=== PATIENT | female | born 1960 | race Caucasian/White ===

== ENCOUNTER 2022-03-12 16:24 | Outpatient (CLI) | payer MEDICARE, SELFPAY | END 2022-03-12 16:25 | disposition home or self-care (01) | LOC: AMB 03-13 04:19 | PROVIDERS: Visit Provider Family Medicine | DX: R53.1 Weakness (principal) | CPT/HCPCS: A0998 ==

== ENCOUNTER 2022-10-25 13:09 | Outpatient (CLI) | payer MEDICARE, SELFPAY | END 2022-10-25 13:10 | disposition home or self-care (01) | PROVIDERS: PCP Internal Medicine; Visit Provider Internal Medicine | DX: Z00.00 Encounter for general adult medical examination without abnormal findings (principal); E78.5 Hyperlipidemia, unspecified; I10 Essential (primary) hypertension; E66.01 Morbid (severe) obesity due to excess calories; G62.9 Polyneuropathy, unspecified | CPT/HCPCS: 80048; 80061; 82306 ==

== ENCOUNTER 2023-02-27 18:16 | Outpatient (CLI) | payer MEDICARE, SELFPAY | END 2023-02-27 18:17 | disposition home or self-care (01) | LOC: AMB 03-05 08:13 | PROVIDERS: PCP Internal Medicine; Visit Provider Emergency Medicine | DX: R53.1 Weakness (principal) | CPT/HCPCS: A0998 ==

== ENCOUNTER 2023-03-07 12:00 | Outpatient (CLI) | payer MEDICARE, SELFPAY | END 2023-03-07 12:01 | disposition home or self-care (01) | LOC: AMB 03-10 15:57 | PROVIDERS: PCP Internal Medicine; Visit Provider Emergency Medicine | DX: R53.1 Weakness (principal) | CPT/HCPCS: A0998 ==

== ENCOUNTER 2023-04-10 08:08 | Outpatient (CLI) | payer MEDICARE, SELFPAY | END 2023-04-10 08:09 | disposition home or self-care (01) | LOC: AMB 04-11 18:36 | PROVIDERS: PCP Internal Medicine; Visit Provider Family Medicine | DX: R53.1 Weakness (principal) | CPT/HCPCS: A0998 ==

== ENCOUNTER 2024-01-08 13:43 | Outpatient (CLI) | payer OTHER, SELFPAY | END 2024-01-08 13:44 | disposition home or self-care (01) | PROVIDERS: PCP Internal Medicine; Visit Provider Internal Medicine | DX: E55.9 Vitamin D deficiency, unspecified (principal); E66.01 Morbid (severe) obesity due to excess calories; E78.5 Hyperlipidemia, unspecified; I10 Essential (primary) hypertension | CPT/HCPCS: 80048; 80061; 82306 ==

== ENCOUNTER 2024-02-16 02:19 | Outpatient (CLI) | payer OTHER, SELFPAY | END 2024-02-16 02:20 | disposition home or self-care (01) | LOC: AMB 02-17 00:19 | PROVIDERS: PCP Internal Medicine; Visit Provider Internal Medicine | DX: F41.9 Anxiety disorder, unspecified (principal) | CPT/HCPCS: A0998 ==

== ENCOUNTER 2024-02-20 10:15 | Outpatient (CLI) | payer OTHER, SELFPAY | END 2024-02-20 10:16 | disposition home or self-care (01) | LOC: AMB 02-22 02:35 | PROVIDERS: PCP Internal Medicine; Visit Provider Family Medicine | DX: M54.9 Dorsalgia, unspecified (principal) | CPT/HCPCS: A0425; A0427 ==

== ENCOUNTER 2024-02-20 10:43 | Emergency (ER) | payer OTHER, SELFPAY ==
[2024-02-20 10:54] VITALS: BP 126/97; PULSE 63; RESP 22; TEMP 36.2; O2SAT 95; BMI 48.4
[2024-02-20 11:03] VITALS: PULSE 66; O2SAT 95
[2024-02-20 11:15] VITALS: PULSE 60; O2SAT 88
--- NOTE | 2024-02-20 11:32 | ED.BACK ---
HPI - Back Pain/Injury General Chief Complaint: Back Injury/Pain Stated Complaint: Back pain Time Seen by Provider: 02/20/24 10:47 History of Present Illness HPI Narrative: This 63-year-old female comes in by ambulance because of chronic back pain. She does not describe any recent injury event or strenuous activity. She is morbidly obese and lives alone at home. She states that today she was afraid to get up because of her back pain. She reports that she does have Vicodin and a muscle relaxant at home but chose instead to use vodka over the past day. She states that none of these have really helped her. She does not report any pain radiating down either leg. Ambulance report that her living situation was on capped and apparently they are reporting a vulnerable adult. The patient tells me that she wants to be able to go home but came in today primarily because she felt she was at risk for getting up to ambulate. She states that her last drink of alcohol was about 24 hours ago. She does not appear to be intoxicated. Related Data Home Medications ?Medication ?Instructions ?Recorded ?Confirmed gabapentin 300 mg capsule 300 - 600 mg PO TID PRN 01/08/24 Previous Rx's ?Medication ?Instructions ?Recorded atorvastatin 20 mg tablet 20 mg PO DAILY #90 tabs 01/08/24 chlorthalidone 25 mg tablet 25 mg PO QDAY #90 tabs 01/08/24 clonidine HCl 0.1 mg tablet 0.1 mg PO BID #180 tabs 01/08/24 furosemide 20 mg tablet (Lasix) 20 mg PO QDAY PRN edema #90 tabs 01/08/24 metoprolol succinate 50 mg 50 mg PO DAILY #90 tabs 01/08/24 tablet,extended release 24 hr rivaroxaban 20 mg tablet (Xarelto) 20 mg PO DAILY #90 tabs 01/08/24 trazodone 50 mg tablet 50 - 100 mg (1 - 2 x 50 mg) PO 01/08/24 QDAY #135 tabs ergocalciferol (vitamin D2) 1,250 50,000 unit PO QWEEK #12 caps 01/09/24 mcg (50,000 unit) capsule (Vitamin D2) hydrocodone 5 mg-acetaminophen 325 1 tab PO Q6H PRN pain #90 tabs 01/29/24 mg tablet carisoprodol 350 mg tablet 350 mg PO TID PRN muscle pain #90 01/30/24 tabs Allergies Allergy/AdvReac Type Severity Reaction Status Date / Time aspirin Allergy Unknown Irritation Verified 10/25/22 13:25 to her psoriasis Lisinopril Allergy Unknown Angioedema Uncoded 10/25/22 13:25 Review of Systems Status of ROS: Reports: 10 or more systems reviewed and unremarkable except as noted in History and below Narrative: Constitutional: No fevers, no weight gain or loss. Eyes: No discharge. No vision changes. HENT: No congestion, no sore throat, no ear pain. Cardiovascular: No chest pain, no palpitations. Respiratory: No shortness of breath, no wheezes, no cough. Gastrointestinal: No abdominal pain, no vomiting, no diarrhea. Genitourinary: No dysuria, no hematuria. Musculoskeletal: Low back pain as described above. Skin: No rashes, no pruritis. Neurological: No dizziness, weakness, sensory change, speech change. Endo/Heme/Allergies: No bruising or bleeding. No polydipsia. Pysch: no suicidality, no anxiety, no insomnia. All other systems reviewed and are negative. [facility] Surgical History (Updated 10/25/22 @ 13:45 by Milana Lozano MD) History of total hip replacement ?Z96.649 - Presence of unspecified artificial hip joint (ICD-10) Social History (Updated 01/08/24 @ 16:01 by Gem Yee ~ [facility]) What is your current living situation?: I presently have a place to live Problems where you live: no known problems In the past 12 months, utilities in danger of being shut off: declined to answer In past 12 months, lack of transportation kept you from medical appts, meetings, work, or getting things needed for daily living: declined to answer In the past 12 mos, have been you worried that your food would run out before you had money to buy more?: sometimes true In the past 12 mos, the food you bought just didn't last and you didn't have money to buy more?: sometimes true Smoking Status: Current every day smoker How many standard drinks containing alcohol do you have on a typical day: 1 or 2 How often do you have six or more drinks on one occasion: Daily or almost daily AUDIT-C Alcohol total score: 4 How often does anyone, including family, friends and others, physically hurt you: never How often does anyone, including family, friends and others, insult or talk down to you: never How often does anyone, including family, friends and others, threaten you with harm: never How often does anyone, including family, friends and others, scream or curse at you: never Health Related Social Needs: food insecurity (Z59.41) Exam Narrative: Exam Narrative: Constitutional: Well-developed, well-nourished, no acute distress. HEENT: Normocephalic, atraumatic. Neck: Normal range of motion. Nontender. Supple. Heart: Intact distal pulses. Lungs: No chest discomfort. No wheezes, rhonchi, or rales. Abdomen: Nontender. Back: Normal range of motion. Extremities: Normal range of motion. No injury. Skin: Intact. No rash. Warm. No erythema or pallor. Neurologic: No altered sensation. No weakness. Alert and oriented. Nursing notes and vitals signs are reviewed. Const: Vital Signs, click to edit/add: Vital Signs - 24 hr 02/20/24 10:54 02/20/24 11:03 02/20/24 11:15 Temperature 97.2 F L Pulse Rate 66 60 Pulse Rate [Pulse Oximeter] 63 Respiratory Rate 22 Blood Pressure [Ri ght Upper Arm] 126/97 H Pulse Oximetry 95 95 88 Oxygen Delivery Me thod Room Air 02/20/24 11:51 02/20/24 12:00 02/20/24 12:15 Temperature Pulse Rate 65 68 64 Pulse Rate [Pulse Oximeter] Respiratory Rate 18 Blood Pressure [Ri ght Upper Arm] Pulse Oximetry 93 95 94 Oxygen Delivery Me thod Course Vital Signs Vital signs: Initial Vital Signs Temperature 97.2 F L 02/20/24 10:54 Temperature Source Temporal Artery Scan 02/20/24 10:54 Pulse Rate 63 02/20/24 10:54 Respiratory Rate 22 02/20/24 10:54 Blood Pressure 126/97 H 02/20/24 10:54 Blood Pressure Mean 106 H 02/20/24 10:54 Pulse Oximetry 95 02/20/24 10:54 Oxygen Delivery Method Room Air 02/20/24 10:54 Vital Signs Temperature 97.2 F L 02/20/24 10:54 Pulse Rate 63 02/20/24 10:54 Respiratory Rate 22 02/20/24 10:54 Blood Pressure 126/97 H 02/20/24 10:54 Pulse Oximetry 95 02/20/24 10:54 Oxygen Delivery Method Room Air 02/20/24 10:54 Temperature 97.2 F L 02/20/24 10:54 Pulse Rate 64 02/20/24 12:15 Respiratory Rate 18 02/20/24 12:15 Blood Pressure 126/97 H 02/20/24 10:54 Pulse Oximetry 94 02/20/24 12:15 Oxygen Delivery Method Room Air 02/20/24 10:54 Medications Administered Medications: Generic Name Dose Route Start Last Admin Trade Name Freq PRN Reason Stop Dose Admin Nicotine 1 patch 02/20/24 12:15 02/20/24 12:26 Nicotine 21 Mg Patch TRANSDERMA 1 patch Q24H RAJINDER Administration Discontinued Medications Generic Name Dose Route Start Last Admin Trade Name Freq PRN Reason Stop Dose Admin Morphine Sulfate 10 mg 02/20/24 11:31 02/20/24 11:52 Morphine 10 Mg/Ml Inj IM 02/20/24 11:32 10 mg ONCE ONE Administration MDM - Back Pain/Injury MDM Narrative Medical decision making narrative: This patient comes in reporting chronic back pain. She arrives here with reassuring vital signs. There is no recent injury event or strenuous activity. She does live alone at home and states that she was concerned if she got up today that she would fall and so she came in by ambulance. The patient is not displaying any mechanisms that mandate imaging at this time. I did offer imaging on the LEs which the patient declined in a process of shared decision making. She did receive an intramuscular injection of morphine which I explained we would not repeat but this was done in hopes to get her functional as she states that she wants to return home. She was able to successfully complete a road test and is okay to be discharged home. Discharge Plan Discharge Clinical Impression: Chronic back pain Patient Disposition: Home, Self-Care Condition: Stable Additional Instructions: Continue current plans. Regular activity is encouraged to maintain strength. Follow up with MD for ongoing management. Return if worsening. Prescriptions: No Action gabapentin 300 mg capsule 300 - 600 mg PO TID PRN Xarelto 20 mg tablet 20 mg PO DAILY Qty: 90 3RF metoprolol succinate 50 mg tablet extended release 24 hr 50 mg PO DAILY Qty: 90 3RF clonidine HCl 0.1 mg tablet 0.1 mg PO BID Qty: 180 3RF chlorthalidone 25 mg tablet 25 mg PO QDAY Qty: 90 3RF atorvastatin 20 mg tablet 20 mg PO DAILY Qty: 90 3RF trazodone 50 mg tablet 50 - 100 mg PO QDAY Qty: 135 3RF furosemide [Lasix] 20 mg tablet 20 mg PO QDAY PRN (Reason: edema) Qty: 90 1RF ergocalciferol (vitamin D2) [Vitamin D2] 1,250 mcg (50,000 unit) capsule 50,000 unit PO QWEEK Qty: 12 0RF hydrocodone-acetaminophen 5-325 mg tablet 1 tab PO Q6H PRN (Reason: pain) Qty: 90 0RF carisoprodol 350 mg tablet 350 mg PO TID PRN (Reason: muscle pain) Qty: 90 5RF Follow Up/Referrals: Milana Lozano MD [Primary Care Provider] - Stand Alone Forms: [facility] Info Instructions
[2024-02-20 11:51] VITALS: PULSE 65; O2SAT 93
[2024-02-20] MEDS: MORPHINE 10 MG/ML inj IM (11:52)
[2024-02-20 12:00] VITALS: PULSE 68; O2SAT 95
[2024-02-20 12:15] VITALS: PULSE 64; RESP 18; O2SAT 94
[2024-02-20] MEDS: NICOTINE 21 MG PATCH 1 PATCH TRANSDERMA (12:26)
--- NOTE | 2024-02-22 15:13 | PC.SOCIAL ---
Social work: Received call from [facility], stating there is an open case on this patient. Secure emailed requested MD note, and EMS note from ED visit on 02/21/24.
== END 2024-02-20 14:21 | disposition home or self-care (01) ==
PROVIDERS: Emergency Provider Emergency Medicine Emergency Medical Services; PCP Internal Medicine
DX: M54.9 Dorsalgia, unspecified (principal); G89.29 Other chronic pain
CPT/HCPCS: 94761; 96372; 99284; J2270; S4990

== ENCOUNTER 2024-02-20 14:15 | Outpatient (CLI) | payer OTHER, SELFPAY | END 2024-02-20 14:16 | disposition home or self-care (01) | LOC: AMB 02-27 09:38 | PROVIDERS: PCP Internal Medicine; Visit Provider Family Medicine | DX: M54.9 Dorsalgia, unspecified (principal); E66.01 Morbid (severe) obesity due to excess calories | CPT/HCPCS: A0425; A0428 ==

== ENCOUNTER 2024-04-26 10:08 | Outpatient (CLI) | payer OTHER, SELFPAY | END 2024-04-26 10:09 | disposition home or self-care (01) | PROVIDERS: PCP Internal Medicine; Visit Provider Emergency Medicine Emergency Medical Services | DX: R45.851 Suicidal ideations (principal) | CPT/HCPCS: A0998 ==

== ENCOUNTER 2024-04-26 13:07 | Outpatient (CLI) | payer OTHER, SELFPAY | END 2024-04-26 13:08 | disposition home or self-care (01) | LOC: AMB 04-30 16:17 | PROVIDERS: PCP Internal Medicine; Visit Provider Emergency Medicine Emergency Medical Services | DX: R53.1 Weakness (principal) | CPT/HCPCS: A0998 ==

== ENCOUNTER 2024-04-26 17:14 | Outpatient (CLI) | payer OTHER, SELFPAY | END 2024-04-26 17:15 | disposition home or self-care (01) | LOC: AMB 04-29 13:58 | PROVIDERS: PCP Internal Medicine; Visit Provider Family Medicine | DX: M54.9 Dorsalgia, unspecified (principal) | CPT/HCPCS: A0425; A0429 ==

== ENCOUNTER 2024-04-26 17:46 | Emergency (ER) | payer OTHER, SELFPAY ==
[2024-04-26] VITALS (32 sets, daily range): BP systolic 141–177; BP diastolic 72–97; PULSE 78–105; RESP 18–22; TEMP 36.2–37.4; O2SAT 91–97; BMI 48.4
--- NOTE | 2024-04-26 18:32 | ED.GENADULT ---
HPI - General Adult General Date Seen: 04/26/24 Chief complaint: Back Injury/Pain Stated complaint: Back pain and hypertension Time Seen by Provider: 04/26/24 18:31 History of Present Illness HPI narrative: This is a 63-year-old female brought to the ER today by EMS. Paramedics report that they have been called to her house 3 times today. Patient worsening lumbar back pain and cannot get herself out of recliner. EMS noted that her recliner chair was saturated with urine. She has no food in her refrigerator. Apparently, [facility] social media marketing analyst is involved in the patient's care, but the patient is her own guardian. EMS reports that they have been called to her house 3 times today and she is not able to get out of her recliner chair. She has been urinating a recliner chair and not able to care for herself. EMS will file a vulnerable adult report with the [facility]. They felt that transport to the ER was mandatory because of patient's safety. Per previous records: she had been seen in the ER on 02/20/2024 for back pain. Per those notes she does have chronic back pain on Vicodin muscle relaxers but also drinks alcohol for self medicating pain management. Received an IM shot and was able to discharge home. 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 She has a history of hypertension on metoprolol, clonidine, chlorthalidone, Lasix. She has hydrocodone for her back. She says she gets prescriptions for hydrocodone from her PCP. She is allowed to take 4 hydrocodone tablets per day, but she says it does not work for her back anymore so she has not been taking it for the past couple of days. History from the patient is that she does have longstanding low back pain. She apparently has a slip of 1 of the vertebrae on another. Apparently she had surgery recommended to her many years ago but refused citing concern for surgical complications. She manage her back pain over the long-term with muscle relaxers and [place]. She used to have a doctor who retired a few months ago so she now gets her [place] prescription to her PCP here in [place]. She feels as though [place] is not working for her anymore so she stopped taking it. She says she has [place] tablets available to her at home, but she does not take them, since they do not do any good. She has a lot of difficulty getting around because of her back. It sounds like she is almost completely disabled. She relies on a friend who helps clean her apartment and brings her food and alcohol. She has a cat but isn't able to feed it or clean its litter box. She has a bed but has not been able to get in out of it for some years. She normally sleeps in a motorized lift recliner. She says yesterday her lift recliner broke and was not able to lift her up out of the chair. Therefore she was not able to get up. Her back pain has been getting worse and she has been very frustrated because she cannot get herself out of the chair. She has a son and a daughter who are apparently estranged from her and unwilling to come help. She does recall that she called ambulance once last night and again this morning for lift assist but refused transport. She is not having a fever. Urination has been normal other than she has not been able to walk to the toilet. She has not had any bowel movements while sitting in the chair. No diarrhea. She is not having any abdominal pain. No pain in her legs. No cough. No trouble breathing. No headache. No sore throat When asked about alcohol consumption, the patient is disingenuous. She initially says that she only drinks once every couple of weeks. When asked more she then tells me that she will drink an entire bottle when her friend brings or alcohol, but her friend only brings or alcohol every week or 2. She then tells me that the last time she had anything to drink was probably for 5 days ago on Monday. After her alcohol level came back at 0.27 I asked her again. She acts surprised about her alcohol level, but cannot give me a clear explanation for when her last drink was. She says she think she probably was drinking, ?yesterday. Related Data Home Medications ?Medication ?Instructions ?Recorded ?Confirmed gabapentin 300 mg capsule 300 - 600 mg PO TID PRN 01/08/24 04/26/24 cholecalciferol (vitamin D3) 25 1,000 unit PO DAILY 04/26/24 04/26/24 mcg (1,000 unit) tablet Previous Rx's ?Medication ?Instructions ?Recorded atorvastatin 20 mg tablet 20 mg PO DAILY #90 tabs 01/08/24 chlorthalidone 25 mg tablet 25 mg PO QDAY #90 tabs 01/08/24 clonidine HCl 0.1 mg tablet 0.1 mg PO BID #180 tabs 01/08/24 furosemide 20 mg tablet (Lasix) 20 mg PO QDAY PRN edema #90 tabs 01/08/24 metoprolol succinate 50 mg 50 mg PO DAILY #90 tabs 01/08/24 tablet,extended release 24 hr rivaroxaban 20 mg tablet (Xarelto) 20 mg PO DAILY #90 tabs 01/08/24 trazodone 50 mg tablet 50 - 100 mg (1 - 2 x 50 mg) PO 01/08/24 QDAY #135 tabs carisoprodol 350 mg tablet 350 mg PO TID PRN muscle pain #90 01/30/24 tabs hydrocodone 5 mg-acetaminophen 325 1 tab PO Q6H PRN pain #90 tabs 04/09/24 mg tablet Allergies Allergy/AdvReac Type Severity Reaction Status Date / Time lisinopril Allergy Severe angioedema Verified 04/26/24 23:14 aspirin Allergy Unknown Irritation Verified 04/26/24 23:14 to her psoriasis [facility] Surgical History (Updated 10/25/22 @ 13:45 by Milana Lozano MD) History of total hip replacement ?Z96.649 - Presence of unspecified artificial hip joint (ICD-10) Social History (Updated 01/08/24 @ 16:01 by Gem Yee ~ [facility]) What is your current living situation?: I presently have a place to live Problems where you live: no known problems In the past 12 months, utilities in danger of being shut off: declined to answer In past 12 months, lack of transportation kept you from medical appts, meetings, work, or getting things needed for daily living: declined to answer In the past 12 mos, have been you worried that your food would run out before you had money to buy more?: sometimes true In the past 12 mos, the food you bought just didn't last and you didn't have money to buy more?: sometimes true Smoking Status: Current every day smoker How often do you have a drink containing alcohol: 4 or more times a week How many standard drinks containing alcohol do you have on a typical day: 1 or 2 How often do you have six or more drinks on one occasion: Daily or almost daily AUDIT-C Alcohol total score: 8 Non-prescribed substance use: denies use How often does anyone, including family, friends and others, physically hurt you: never How often does anyone, including family, friends and others, insult or talk down to you: never How often does anyone, including family, friends and others, threaten you with harm: never How often does anyone, including family, friends and others, scream or curse at you: never Health Related Social Needs: food insecurity (Z59.41) Exam Narrative: Exam Narrative: Constitutional: Appears well-developed and over-nourished. Alert. Conversant. Non toxic. Polite. Sitting up in her hospital bed. HENT: Head: Atraumatic. Nose: Nose normal. Mouth/Throat: Oral mucosa is clear but dry. Not desiccated or cracked.. no trismus. Pharynx normal. Tonsils symmetric. No tonsillar enlargement, erythema, or exudate. Eyes: Conjunctivae normal. EOM normal. Pupils equal, round, and reactive to light. No scleral icterus. Neck: Normal range of motion. Neck supple. No tracheal deviation present. No JVD Cardiovascular: Normal rate, regular rhythm. No gallop. No friction rub. No murmur heard. Symmetric radial artery pulses Pulmonary/Chest: She is able to sit forward for posterior lung exam. Effort normal. No stridor. No respiratory distress. No wheezes. No rales. No rhonchi . No tenderness. Abdominal: Soft. Bowel sounds normal. Protuberant due to body habitus but No distension. No mass. No tenderness. No rebound. No guarding. No CVA tenderness Musculoskeletal: She is able to roll onto her right side and left side for back exam. No midline step-off, bruising, erythema. She has diffuse tenderness on her entire low back. Pelvis is stable. RUE: Normal range of motion. No tenderness. No deformity LUE: Normal range of motion. No tenderness. No deformity RLE: Normal range of motion. No edema. No tenderness. No deformity LLE: Normal range of motion. No edema. No tenderness. No deformity Neurological: Alert and oriented to person, place, and time. Normal strength. CN II-VII intact. No sensory deficit. GCS eye subscore is 4. GCS verbal subscore is 5. GCS motor subscore is 6. Normal coordination Sensory: Normal light touch sensation bilaterally on the anteromedial thigh (L3), medial malleolus (L4), dorsal first web space (L5), lateral malleolus (S1). Strength: 5/5 strength hip flexors (L3) on the left, but limited on the right which she says is chronic due to her previous right hip surgeries 5/5 strength in the quadriceps (L4) on the left but limited on the right which she says is chronic due to her previous hip surgeries. 5/5 strength in the tibialis anterior 5/5 strength in the EHL (L5) on the right and left 5/5 strength in the gastrocnemius (S1) on the right and left 5/5 strength in the hamstring on the right and left DTRs: symmetric in the patella (2/4) but not elicitable in the Achilles Negative straight leg raise bilaterally. Skin: She does have scattered salmon-colored slightly erythematous scaly macules on her face, back, lower leg, right buttock that I think might be due to psoriasis. In the intertriginous folds below her breasts and below her abdominal pannus there is erythematous skin breakdown with whitish exudate suggestive of probable Dilcia. Otherwise, Skin is warm and dry. No rash noted. No pallor. Normal capillary refill. Psychiatric: Normal mood. She is polite. Clinically does not appear have slurred speech or other clear signs of alcohol intoxication. Does endorse depression, poor appetite. She is not suicidal. Const: Vital Signs, click to edit/add: Vital Signs - 24 hr 04/26/24 17:56 04/26/24 19:52 04/26/24 23:34 Temperature 97.2 F L 98.7 F 99.3 F Pulse Rate [Pulse Oximeter] 86 90 104 H Respiratory Rate 22 18 18 Blood Pressure [Ri ght Upper Arm] 148/87 H 177/95 H 145/75 H Pulse Oximetry 96 94 94 Oxygen Delivery Me thod Room Air Room Air Room Air Course Vital Signs Vital signs: Initial Vital Signs Temperature 97.2 F L 04/26/24 17:56 Temperature Source Temporal Artery Scan 04/26/24 17:56 Pulse Rate 86 04/26/24 17:56 Respiratory Rate 22 04/26/24 17:56 Blood Pressure 148/87 H 04/26/24 17:56 Blood Pressure Mean 107 H 04/26/24 17:56 Blood Pressure Position Semi-Fowlers 04/26/24 17:56 Pulse Oximetry 96 04/26/24 17:56 Oxygen Delivery Method Room Air 04/26/24 17:56 Vital Signs Temperature 97.2 F L 04/26/24 17:56 Pulse Rate 86 04/26/24 17:56 Respiratory Rate 22 04/26/24 17:56 Blood Pressure 148/87 H 04/26/24 17:56 Pulse Oximetry 96 04/26/24 17:56 Oxygen Delivery Method Room Air 04/26/24 17:56 Temperature 99.3 F 04/26/24 23:34 Pulse Rate 104 H 04/26/24 23:34 Respiratory Rate 18 04/26/24 23:34 Blood Pressure 145/75 H 04/26/24 23:34 Pulse Oximetry 94 04/26/24 23:34 Oxygen Delivery Method Room Air 04/26/24 23:34 Medications Administered Medications: Generic Name Dose Route Start Last Admin Trade Name Freq PRN Reason Stop Dose Admin Sodium Chloride 1,000 mls @ 1,000 mls/hr 04/26/24 23:00 04/26/24 23:33 0.9 % Sodium Chloride 1000 Ml IV 04/26/24 23:59 1,000 mls/hr .Q1H RAJINDER Administration Piperacillin Sod/Tazobactam 100 mls @ 200 mls/hr 04/26/24 23:00 04/26/24 23:30 Sod 4.5 gm/ Sodium Chloride IVPB 200 mls/hr Q6H RAJINDER Administration Discontinued Medications Generic Name Dose Route Start Last Admin Trade Name Freq PRN Reason Stop Dose Admin Diazepam 5 mg 04/26/24 18:58 04/26/24 19:49 Diazepam 5 Mg Tablet PO 04/26/24 18:59 5 mg ONCE ONE Administration Sodium Chloride 1,000 mls @ 1,000 mls/hr 04/26/24 20:30 04/26/24 23:35 0.9 % Sodium Chloride 1000 Ml IV 04/26/24 21:29 Infused .Q1H RAJINDER Infusion Lactated Ringer's 1,000 mls @ 1,000 mls/hr 04/26/24 20:21 04/26/24 22:15 Lactated Ringers 1000 Ml IV 04/26/24 21:20 Infused .Q1H ONE Infusion Oxycodone/Acetaminophen 2 tab 04/26/24 18:58 04/26/24 19:49 Oxycodone/Apap 5-325 Tablet PO 04/26/24 18:59 2 tab ONCE ONE Administration Medical Decision Making MDM Narrative Medical decision making narrative: 63-year-old female brought to the ER today by EMS from her home because of back pain and inability for her to care for herself. 1. Social. It sounds like she lives alone in her own apartment. She is disabled and on public assistance and cannot afford any better place or any assisted living. It sounds like she has been struggling with back pain for years and has very limited mobility because of her back pain and BMI. She normally sleeps in a lift chair. However her lift chair broke yesterday and she has been stuck and unable to get out of her chair since yesterday. She has no close friends or family that can assist her with her ADLs or care at home. It is clear that she will require hospitalization for supportive care and nursing care based on her inability to get out of bed or ambulate. She also appears to be an alcoholic. Alcohol level is elevated 0.27. Vulnerable adult report has been filed by the EMS crew. 2. Alcohol. She does have elevated alcohol level. She is clinically sober. LFTs are normal. There is no tachycardia, tremor, or other signs of withdrawal this time. However would certainly be at risk for evolving alcohol withdrawal while in the hospital. 3. She has been stuck in her chair for 24 hours or so. She does not have any bed sores on her back or buttock exam. No signs of skin breakdown but she does have signs of psoriatic plaque on her back. CK is normal. No evidence for rhabdomyolysis. 4. Renal. BUN elevated at 39. Creatinine normal. Suspect probably prerenal due to dehydration. She says she has not been able to get out of her chair and drink any water since yesterday. 5. Infectious disease: Patient does have elevated lactic acid at 7.1. This is alarming but there are no other definitive signs of sepsis or shock on her presentation. Low-grade temp of 99.3?. She has normal blood pressure, normal pulse, normal oxygen, and despite alcohol intoxication, normal mental status. White count is normal. She denies any cough. We did do a screening chest x-ray did is negative for pneumonia. However abdomen pelvis CT does show small inflammatory nodules, possibly pneumonia, in the lower lung wild. She is not hypoxic or even coughing. Unclear if this truly represents pneumonia but would be covered by antibiotics already ordered Urinalysis is shows mildly abnormal findings with positive nitrite, scant hematuria with 2-5 red cells. 0-2 white cells. Also few bacteria. No squamous epithelial cells. Possible UTI would also be covered by Zosyn and vancomycin. No evidence for obstructing kidney stones or perinephric stranding or pat neck trach abscess on her abdomen/pelvis CT. She is not having any abdominal pain to suggest ischemic colitis as a cause for elevated lactic acid. CT abdomen/pelvis is negative for any acute phlegm a zuleyka changes or ischemia. She is not anemic and there is no signs of bleeding to suggest blood loss or hemorrhagic shock. After 2 L of IV crystalloid, repeat lactic is only down to 6.2. third L of crystalloid ordered. Given persistently elevated lactic acid, even in the absence of fever or leukocytosis, I am concerned about possible occult sepsis so will start antibiotics (Zosyn, vancomycin). 6. Back pain. She does have chronic back pain which is exacerbated today after being stuck in her chair overnight. With chronic pain and we wanted to avoid parental opiates but I did give her oral opiates here in the ER as she is chronically on [place]. She says her back pain is somewhat improved. She does not have any new focal neurologic deficits but does have some right leg weakness which she says is chronic. I do not have access to MRI here in the ER [place] today. We did obtain a lumbar spine CT to make sure there was no other acute fracture causing her pain exacerbation. L-spine CT shows no acute findings. Disposition: This patient will clearly require hospitalization. Unfortunately we have no open beds or nursing capacity to accept the patient here in [place]. I had conversation with hospitalist and warehouse helper to see if we can rearrange staffing to accommodate her, but it is simply not feasible tonight. Therefore, transfer is indicated. We contacted the line access center. All of the [facility] facilities are at capacity [facility], in [place]. I discussed the patient with the hospitalist from [place], Dr. Robles. He agrees to accept the patient for management of her back pain under social problems. He has accepted the patient and a bed has been assigned. However, he and I both have Concern over her elevated lactic acid. Unclear if it truly represents a life-threatening problem such as microvascular ischemia, mesenteric ischemia, sepsis. I suspected may be a type B lactic acidosis because of alcohol consumption and liver problems. He will accept the patient in transfer if her lactic acid is coming down after IV fluids. As it is not coming down, he request that we obtain CT scan abdomen/pelvis to look for mesenteric ischemia. Updated Dr. Cook at midnight. He accepts the patient in transfer after negative CT abdomen pelvis. Lactic acid is still elevated but improving. He agrees with antibiotics. Would also start doxycycline for potential pneumonia based on CT findings. Lab Data Labs: Lab Results 04/26/24 04/26/24 04/26/24 Range/Units 19:50 19:50 19:50 WBC 7.29 (4.50-11.00) K/uL RBC 4.49 (4.00-5.20) m/uL Hgb 12.5 (12.0-16.0) gm/dL Hct 38.7 (33.0-51.0) % MCV 86 (80-100) fL MCH 28 (26-34) pg MCHC 32 (32-36) gm/dL RDW Coeff of Kari 16.1 H (11.5-15.5) % Plt Count 286 (140-440) K/uL Neut % (Auto) 61.2 (42.0-72.0) % Lymph % (Auto) 32.6 (20-44) % Butler % (Auto) 4.8 (0.0-11.0) % Eos % (Auto) 0.3 (0.0-7.0) % Baso % (Auto) 1.0 (0.0-3.0) % Neut # (Auto) 4.46 (1.7-7.0) K/uL Lymph # (Auto) 2.38 (0.90-2.90) K/uL Butler # (Auto) 0.30 (0.00-0.90) K/UL Eos # (Auto) 0.02 (0.00-0.50) K/uL Baso # (Auto) 0.07 (0.00-0.30) K/uL Abs Immat Gran (auto) 0.01 (0.00-0.30) K/uL Imm/Tot Granulo (auto) 0.1 % Sodium Cancelled 138 Potassium Cancelled 4.6 Chloride Cancelled Carbon Dioxide Anion Gap BUN Creatinine Estimated Creat Clear Estimated GFR Glucose Lactate (0.5-1.9) mmol/L Calcium Total Bilirubin (0.1-1.5) mg/dL Direct Bilirubin (0.0-0.5) mg/dL AST (12-35) U/L ALT (4-35) U/L Alkaline Phosphatase (40-150) U/L Total Creatine Kinase Total Protein (6.0-8.3) g/dL Albumin (3.3-5.0) g/dL Urine Color (Yellow) Urine Appearance (Clear) Urine pH (5.0-8.5) Ur Specific [place] (1.000-1.030) Urine Protein (Negative) Urine Glucose (UA) (Negative) Urine Ketones (Negative) Urine Blood (Negative) Urine Nitrite (Negative) Urine Bilirubin (Negative) Urine Urobilinogen (0.2-1.0) Ur Leukocyte Esterase (Negative) Urine RBC (0-2) Urine WBC (0-5) Ur Squamous Epith Cells (None-Few) Urine Bacteria (None) Ethyl Alcohol (0.01-0.03) % 04/26/24 04/26/24 04/26/24 Range/Units 19:50 19:50 19:50 WBC (4.50-11.00) K/uL RBC (4.00-5.20) m/uL Hgb (12.0-16.0) gm/dL Hct (33.0-51.0) % MCV (80-100) fL MCH (26-34) pg MCHC (32-36) gm/dL RDW Coeff of Kari (11.5-15.5) % Plt Count (140-440) K/uL Neut % (Auto) (42.0-72.0) % Lymph % (Auto) (20-44) % Butler % (Auto) (0.0-11.0) % Eos % (Auto) (0.0-7.0) % Baso % (Auto) (0.0-3.0) % Neut # (Auto) (1.7-7.0) K/uL Lymph # (Auto) (0.90-2.90) K/uL Butler # (Auto) (0.00-0.90) K/UL Eos # (Auto) (0.00-0.50) K/uL Baso # (Auto) (0.00-0.30) K/uL Abs Immat Gran (auto) (0.00-0.30) K/uL Imm/Tot Granulo (auto) % Sodium Potassium Chloride 96 Carbon Dioxide Cancelled 20 Anion Gap Cancelled 22 H BUN Cancelled Creatinine Estimated Creat Clear Estimated GFR Glucose Lactate (0.5-1.9) mmol/L Calcium Total Bilirubin (0.1-1.5) mg/dL Direct Bilirubin (0.0-0.5) mg/dL AST (12-35) U/L ALT (4-35) U/L Alkaline Phosphatase (40-150) U/L Total Creatine Kinase Total Protein (6.0-8.3) g/dL Albumin (3.3-5.0) g/dL Urine Color (Yellow) Urine Appearance (Clear) Urine pH (5.0-8.5) Ur Specific [place] (1.000-1.030) Urine Protein (Negative) Urine Glucose (UA) (Negative) Urine Ketones (Negative) Urine Blood (Negative) Urine Nitrite (Negative) Urine Bilirubin (Negative) Urine Urobilinogen (0.2-1.0) Ur Leukocyte Esterase (Negative) Urine RBC (0-2) Urine WBC (0-5) Ur Squamous Epith Cells (None-Few) Urine Bacteria (None) Ethyl Alcohol (0.01-0.03) % 04/26/24 04/26/24 04/26/24 Range/Units 19:50 19:50 19:50 WBC (4.50-11.00) K/uL RBC (4.00-5.20) m/uL Hgb (12.0-16.0) gm/dL Hct (33.0-51.0) % MCV (80-100) fL MCH (26-34) pg MCHC (32-36) gm/dL RDW Coeff of Kari (11.5-15.5) % Plt Count (140-440) K/uL Neut % (Auto) (42.0-72.0) % Lymph % (Auto) (20-44) % Butler % (Auto) (0.0-11.0) % Eos % (Auto) (0.0-7.0) % Baso % (Auto) (0.0-3.0) % Neut # (Auto) (1.7-7.0) K/uL Lymph # (Auto) (0.90-2.90) K/uL Butler # (Auto) (0.00-0.90) K/UL Eos # (Auto) (0.00-0.50) K/uL Baso # (Auto) (0.00-0.30) K/uL Abs Immat Gran (auto) (0.00-0.30) K/uL Imm/Tot Granulo (auto) % Sodium Potassium Chloride Carbon Dioxide Anion Gap BUN 39 H Creatinine Cancelled 1.3 Estimated Creat Clear Cancelled 40.93 Estimated GFR Cancelled Glucose Lactate (0.5-1.9) mmol/L Calcium Total Bilirubin (0.1-1.5) mg/dL Direct Bilirubin (0.0-0.5) mg/dL AST (12-35) U/L ALT (4-35) U/L Alkaline Phosphatase (40-150) U/L Total Creatine Kinase Total Protein (6.0-8.3) g/dL Albumin (3.3-5.0) g/dL Urine Color (Yellow) Urine Appearance (Clear) Urine pH (5.0-8.5) Ur Specific [place] (1.000-1.030) Urine Protein (Negative) Urine Glucose (UA) (Negative) Urine Ketones (Negative) Urine Blood (Negative) Urine Nitrite (Negative) Urine Bilirubin (Negative) Urine Urobilinogen (0.2-1.0) Ur Leukocyte Esterase (Negative) Urine RBC (0-2) Urine WBC (0-5) Ur Squamous Epith Cells (None-Few) Urine Bacteria (None) Ethyl Alcohol (0.01-0.03) % 04/26/24 04/26/24 04/26/24 Range/Units 19:50 19:50 19:50 WBC (4.50-11.00) K/uL RBC (4.00-5.20) m/uL Hgb (12.0-16.0) gm/dL Hct (33.0-51.0) % MCV (80-100) fL MCH (26-34) pg MCHC (32-36) gm/dL RDW Coeff of Kari (11.5-15.5) % Plt Count (140-440) K/uL Neut % (Auto) (42.0-72.0) % Lymph % (Auto) (20-44) % Butler % (Auto) (0.0-11.0) % Eos % (Auto) (0.0-7.0) % Baso % (Auto) (0.0-3.0) % Neut # (Auto) (1.7-7.0) K/uL Lymph # (Auto) (0.90-2.90) K/uL Butler # (Auto) (0.00-0.90) K/UL Eos # (Auto) (0.00-0.50) K/uL Baso # (Auto) (0.00-0.30) K/uL Abs Immat Gran (auto) (0.00-0.30) K/uL Imm/Tot Granulo (auto) % Sodium Potassium Chloride Carbon Dioxide Anion Gap BUN Creatinine Estimated Creat Clear Estimated GFR 46 Glucose Cancelled 122 H Lactate 7.1 H* (0.5-1.9) mmol/L Calcium Cancelled 9.3 Total Bilirubin 0.4 (0.1-1.5) mg/dL Direct Bilirubin 0.3 (0.0-0.5) mg/dL AST 21 (12-35) U/L ALT 18 (4-35) U/L Alkaline Phosphatase 93 (40-150) U/L Total Creatine Kinase Cancelled Total Protein (6.0-8.3) g/dL Albumin (3.3-5.0) g/dL Urine Color (Yellow) Urine Appearance (Clear) Urine pH (5.0-8.5) Ur Specific [place] (1.000-1.030) Urine Protein (Negative) Urine Glucose (UA) (Negative) Urine Ketones (Negative) Urine Blood (Negative) Urine Nitrite (Negative) Urine Bilirubin (Negative) Urine Urobilinogen (0.2-1.0) Ur Leukocyte Esterase (Negative) Urine RBC (0-2) Urine WBC (0-5) Ur Squamous Epith Cells (None-Few) Urine Bacteria (None) Ethyl Alcohol (0.01-0.03) % 04/26/24 04/26/24 04/26/24 Range/Units 19:50 22:50 23:05 WBC (4.50-11.00) K/uL RBC (4.00-5.20) m/uL Hgb (12.0-16.0) gm/dL Hct (33.0-51.0) % MCV (80-100) fL MCH (26-34) pg MCHC (32-36) gm/dL RDW Coeff of Kari (11.5-15.5) % Plt Count (140-440) K/uL Neut % (Auto) (42.0-72.0) % Lymph % (Auto) (20-44) % Butler % (Auto) (0.0-11.0) % Eos % (Auto) (0.0-7.0) % Baso % (Auto) (0.0-3.0) % Neut # (Auto) (1.7-7.0) K/uL Lymph # (Auto) (0.90-2.90) K/uL Butler # (Auto) (0.00-0.90) K/UL Eos # (Auto) (0.00-0.50) K/uL Baso # (Auto) (0.00-0.30) K/uL Abs Immat Gran (auto) (0.00-0.30) K/uL Imm/Tot Granulo (auto) % Sodium Potassium Chloride Carbon Dioxide Anion Gap BUN Creatinine Estimated Creat Clear Estimated GFR Glucose Lactate 6.2 H* (0.5-1.9) mmol/L Calcium Total Bilirubin (0.1-1.5) mg/dL Direct Bilirubin (0.0-0.5) mg/dL AST (12-35) U/L ALT (4-35) U/L Alkaline Phosphatase (40-150) U/L Total Creatine Kinase 70 Total Protein 7.7 (6.0-8.3) g/dL Albumin 4.5 (3.3-5.0) g/dL Urine Color Yellow (Yellow) Urine Appearance Cloudy A (Clear) Urine pH 5.0 (5.0-8.5) Ur Specific [place] 1.025 (1.000-1.030) Urine Protein 1+ A (Negative) Urine Glucose (UA) Negative (Negative) Urine Ketones Negative (Negative) Urine Blood 1+ A (Negative) Urine Nitrite Positive A (Negative) Urine Bilirubin Negative (Negative) Urine Urobilinogen 0.2 (0.2-1.0) Ur Leukocyte Esterase Negative (Negative) Urine RBC 2-5 A (0-2) Urine WBC 0-2 (0-5) Ur Squamous Epith Cells None (None-Few) Urine Bacteria Few A (None) Ethyl Alcohol 0.27 H (0.01-0.03) % Imaging Data Chest x-ray: Attestation: I have reviewed the pertinent imaging results. Radiologist's impression: Findings/Impression: Cardiac silhouette is magnified. No definite confluent airspace opacities appreciated. Probable atelectasis at the left lung base. No definite pleural effusion. No pneumothorax. Age-indeterminate height loss of T11 may be chronic, however clinical correlation is recommended. If there is clinical concern for recent compression fracture recommend further evaluation with MR. CT L Spine: Attestation: I have reviewed the pertinent imaging results. Radiologist's impression: IMPRESSION: 1. Diffuse osteopenia limits evaluation for subtle nondisplaced fractures. 2. No acute fractures or traumatic subluxation. 3. Grade 1 L5 on S1 anterolisthesis likely results in at least moderate neural foraminal stenosis bilaterally in the setting of bilateral chronic L5 pars defects. 4. Multilevel lumbar spondylosis, as detailed above. CT scan - abdomen: Attestation: I have reviewed the pertinent imaging results. Radiologist's impression: IMPRESSION: 1. Extensive bibasilar micronodular opacities may be infectious or inflammatory. 2. Submucosal fat deposition in the ascending colon which can be seen in the setting of chronic inflammation. No sign of bowel obstruction, active inflammation, or ischemia. 3. Mild hepatomegaly with diffuse hepatic steatosis. 4. Probable uterine fibroid. Discharge Plan Discharge Clinical Impression: Acute exacerbation of chronic low back pain, Generalized weakness, Alcohol abuse, Alcohol intoxication, Pneumonia, Acidosis, lactic Prescriptions: No Action gabapentin 300 mg capsule 300 - 600 mg PO TID PRN Xarelto 20 mg tablet 20 mg PO DAILY Qty: 90 3RF metoprolol succinate 50 mg tablet extended release 24 hr 50 mg PO DAILY Qty: 90 3RF clonidine HCl 0.1 mg tablet 0.1 mg PO BID Qty: 180 3RF chlorthalidone 25 mg tablet 25 mg PO QDAY Qty: 90 3RF atorvastatin 20 mg tablet 20 mg PO DAILY Qty: 90 3RF trazodone 50 mg tablet 50 - 100 mg PO QDAY Qty: 135 3RF furosemide [Lasix] 20 mg tablet 20 mg PO QDAY PRN (Reason: edema) Qty: 90 1RF cholecalciferol (vitamin D3) 25 mcg (1,000 unit) tablet 1,000 unit PO DAILY carisoprodol 350 mg tablet 350 mg PO TID PRN (Reason: muscle pain) Qty: 90 5RF hydrocodone-acetaminophen 5-325 mg tablet 1 tab PO Q6H PRN (Reason: pain) Qty: 90 0RF Follow Up/Referrals: Milana Lozano MD [Primary Care Provider] -
--- OUTSIDE RECORDS SUMMARY | 2024-04-26 19:32 | XMS_ITS | Continuity of Care Document ---
Author Organization [facility] Address [address] [place] [address] Phone Care Team Providers Care Yarn Finisher Name Role Phone Will Nick HERNÁNDEZ Unavailable Unavailabl e Advance Directives Directive Yes / No Effective Date File Name No Information Encounters Encounter Description Practice Location Reason(s) For Visit Diagnoses Date Provider Providers Copied on Encounter [facility], [address] [place] [address], [id number], [place] tel:[phone] [facility] No Information Will Nick. [address] [facility] [place], [place], [id number], [place]. tel:[phone] Family History Family Member Type Diagnosis Age At Onset No Information Payers Payer name Insurance type Covered republican ID Authoriza tion(s) No Information Social History Type Description Quantity Date Captured Comments Alcohol Use Details Unknown Caffeine Use Details Unknown Tobacco Use Status No Information Smoking Status No Information Sex Female Chief Complaint And Reason For Visit No Information Reason For Referral Reason For Referral No Information Plan Of Treatment Date Type Action Status Goal Lipid panel. Due on 024 due Goal FIT. Due on due Goal Hepatitis C screening. Due o n due Goal HPV. Due on due Goal Update Social History. Due o n due Goal CT-Colonography. Due on due Goal Medication Reconciliation. D ue on due Goal Height. Due on d ue Goal Weight. Due on d ue Goal FIT-DNA. Due on due Goal Tobacco Use. Due on 024 due Goal Zoster vaccine (1st). Due on due Goal Unhealthy drug use screening . Due on due Goal Review Allergy List. Due on due Goal PHQ-9. Due on du e History Of Present Illness Encounter Date Complaint History Of Prese nt Illness No Information Functional Status Date Functional Assessmen t No Information Instructions Date Instruction Additional Infor mation No Information Assessments Type Assessment Date No Information Patient Care Teams Name Effective Dates (start - stop) Status Members No Information
--- OUTSIDE RECORDS SUMMARY | 2024-04-26 19:32 | XMS_ITS | Encounter Summary ---
Author Organization [place] Address [address] [place] [address] Care Team Providers Care Net Applications Developer Name Role Phone Enid Feliz MD Primary Care Provider [phone] Enid Feliz MD Unavailable [phone] Enid Feliz MD Unavailable [phone] Encounter Details Date Type Department Care Team (Late st Contact Info) Description 11/25/2019 [facility] [place] [address] [address] Geraldine Pelaez RN Social History Tobacco Use Types Packs/Day Years Used Date Smoking Tobacco: Every Day Cigarettes Smokeless Tobacco: Never Alcohol Use Standard Drinks/Week Comments Yes 0 (1 standard drink = 0.6 oz pur e alcohol) occ PHQ-2 Answer Date Recorded PHQ-2 Score 0 08/08/2019 Comments No Sex and Gender Information Value Date Recorded Sex Assigned at Not on file Legal Sex Female 12:23 PM CDT Gender Identity Not on file Sexual Orientation Not on file documented as of this encounter Plan of Treatment Not on file documented as of this encounter Goals Goal Patient Goal Type Associated Problems Recent Progress Patient-Stated? Author 1. 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 10:52 AM CASE LINER) No Lyn Morrell LICSW Note: Goal Statement: I will quit smoking cigarettes. Measure of Success: I will slowly reduce my use of cigarettes until I stop smoking cigarettes all together. Strengths: Expressed desire to quit smoking. Understands smoking is bad for her health. Ideas to overcome barriers: Utilize nicotine patches, become more mindful of when she is triggered to want to smoke a cigarette, and modify behaviors in situations when she usually smokes a cigarette. Date to Achieve By: 05/2018 documented as of this encounter Visit Diagnoses Not on filedocumented in this encounter Additional Health Concerns Assessment Noted Time PHQ-9 Depression Total Score: 20 020 4:56 PM CDT documented as of this encounter Care Teams Net Applications Developer Relationship Specialty [place] [address] [place] [address] PCP - General Family Practice 12/06/17 [place] [address] [place] [address] Assigned PCP 07/22/18 02/11/22 [place] [address] [facility] [place] [address] Assigned PCP 04/23/22 08/12/22 documented as of this encounter
--- OUTSIDE RECORDS SUMMARY | 2024-04-26 19:32 | XMS_ITS | Encounter Summary ---
Author Organization [facility] Address [address] [place] [address] Care Team Providers Care Product Ambassador Name Role Phone [facility] Unavailable Lyn Morrell [facility] Unavailable [phone] Enid Feliz MD Primary Care Provider [phone] Eva Church DAG COATER Unavailable [phone] Davian Carcmao MD Unavailable [phone] Eva Church DAG COATER Unavailable [phone] Davian Carcamo MD Unavailable [phone] Enid Feliz MD Unavailable [phone] Enid Feliz MD Unavailable [phone] Reason for Visit * Reason Comments Home Care/Hospice Encounter Details Date Type Department Care Team (Late st Contact Info) Description 12/11/2017 Documentation Only [facility] [address] [place] [address] [place] [address] [place] [address] Home Care/Hospice Social History Tobacco Use Types Packs/Day Years Used Date Smoking Tobacco: Every Day Cigarettes Smokeless Tobacco: Never Alcohol Use Standard Drinks/Week Comments Yes 0 (1 standard drink = 0.6 oz pur e alcohol) occ Comments No Sex and Gender Information Value [...] Lifestyle Not on track( 018 10:52 AM MEDICAL RECORD TRANSCRIBER) No Lyn Morrell LICSW Note: Goal Statement: [...] Diagnoses Not on filedocumented in this encounter Care Teams Product Ambassador Relationship Specialty [place] [address] [place] [address] PCP - General Family Practice 12/06/17 Eva Church NP [address] [address] PCP - Assigned PCP 12/03/15 03/31/18 Davian Carcamo MD [address] [place] [address] PCP - Assigned PCP 04/01/18 05/01/18 [facility] ([facility] ([place]) 12/03/17 01/10/18 Lyn Morrell LICSW Lead Peoplesoft Hr Developer Primary Care - CC 12/05/1701/27 Eva Church NP [facility] [address] [place] [address] Assigned PCP 12/03/15 03/31/18 Davian Carcamo MD [address] [facility] [place] [facility] [place] [address] Assigned PCP 01/14/18 07/21/18 [place] [address] [place] [address] Assigned PCP 07/22/18 02/11/22 [place] [address] [place] [address] Assigned PCP 04/23/22 08/12/22 documented as of this encounter
--- OUTSIDE RECORDS SUMMARY | 2024-04-26 19:32 | XMS_ITS | Encounter Summary ---
Author Organization [facility] Address [address] [place] [address] Care Team Providers Care Day Worker Name Role Phone Enid Feliz MD Primary Care Provider [phone] Enid Feliz MD Unavailable [phone] Eind Feliz MD Unavailable [phone] Encounter Details Date Type Department Care Team (Late st Contact Info) Description 10/22/2020 [facility] [place] [facility] [address] [place] [address] Sheila Golden Social History Tobacco Use Types Packs/Day Years [...] Lifestyle Not on track( 018 10:52 AM COSTUME MAKER) No Lyn Morrell LICSW Note: Goal Statement: [...] documented as of this encounter Care Teams Day Worker Relationship Specialty [place] [address] [place] [address] PCP - General Family Practice 12/06/17 [place] [address] [place] [address] Assigned PCP 07/22/18 02/11/22 [place] [address] [place] [address] Assigned PCP 04/23/22 08/12/22 documented as of this encounter
--- OUTSIDE RECORDS SUMMARY | 2024-04-26 19:32 | XMS_ITS | Encounter Summary ---
Author Organization [facility] Address [address] [place] [address] Care Team Providers Care Box Truck Owner Operator Name Role Phone Enid Feliz MD Primary Care Provider [phone] Enid Feliz MD Unavailable [phone] Enid Feliz MD Unavailable [phone] Encounter Details Date Type Department Care Team (Late st Contact Info) Description 10/02/2020 [facility] [place] [address] [place] [address] Sheila Golden Social History Tobacco Use [...] Lifestyle Not on track( 018 10:52 AM MATH AND SCIENCES DEPARTMENT CHAIR) No Lyn Morrell LICSW Note: Goal Statement: [...] documented as of this encounter Care Teams Box Truck Owner Operator Relationship Specialty [place] [address] [place] [address] PCP - General Family Practice 12/06/17 [place] [address] [place] [address] Assigned PCP 07/22/18 02/11/22 [place] [address] [place] [address] Assigned PCP 04/23/22 08/12/22 documented as of this encounter
--- OUTSIDE RECORDS SUMMARY | 2024-04-26 19:32 | XMS_ITS | Encounter Summary ---
Author Organization [facility] Address [address] [place] [address] Care Team Providers Care Repair Department Manager Name Role Phone Enid Feliz MD Primary Care Provider [phone] Enid Feliz MD Unavailable [phone] Enid Feliz MD Unavailable [phone] Encounter Details Date Type Department Care Team (Late st Contact Info) Description 10/10/2019 [facility] [place] [address] [address] Elvira Barry, MANAGER GRANT AIR TWIST OPERATOR [address] [place] [address] [address] [place] [address] Social History Tobacco Use Types Packs/Day Years [...] Lifestyle Not on track( 018 10:52 AM ELECTRIC STOP INSTALLER) No Lyn Morrell LICSW Note: Goal Statement: [...] documented as of this encounter Care Teams Repair Department Manager Relationship Specialty [place] [address] [facility] [place] [address] PCP - General Family Practice 12/06/17 [place] [address] [place] [address] Assigned PCP 07/22/18 02/11/22 [place] [address] [place] [address] Assigned PCP 04/23/22 08/12/22 documented as of this encounter
--- OUTSIDE RECORDS SUMMARY | 2024-04-26 19:33 | XMS_ITS | Encounter Summary ---
Author Organization [facility] Address [address] [place] [address] Care Team Providers Care Novelty Dipper Name Role Phone Enid Feliz MD Primary Care Provider [phone] Enid Feliz MD Unavailable [phone] Enid Feliz MD Unavailable [phone] Encounter Details Date Type Department Care Team (Late st Contact Info) Description 04/23/2021 [facility] [place] [address] [address] Ananda Nunez RN Social History Tobacco Use Types Packs/Day [...] Lifestyle Not on track( 018 10:52 AM WORLD DESIGNER) No Lyn Morrell LICSW Note: Goal Statement: [...] documented as of this encounter Care Teams Novelty Dipper Relationship Specialty [place] [address] [place] [address] PCP - General Family Practice 12/06/17 [place] [address] [place] [address] Assigned PCP 07/22/18 02/11/22 [place] [address] [facility] [place] [address] Assigned PCP 04/23/22 08/12/22 documented as of this encounter
--- OUTSIDE RECORDS SUMMARY | 2024-04-26 19:33 | XMS_ITS | Encounter Summary ---
Author Organization [facility] Address [address] [place] [address] Care Team Providers Care Air Sealing Technician Name Role Phone [facility] Unavailable [facility] Primary Ca re Provider Lyn Morrell Unavailable Enid Feliz MD Primary Care Provider [phone] Eva Church NP Unavailable [phone] Davian Carcamo MD Unavailable Eva Church NP Unavailable [phone] Davian Carcamo MD Unavailable Enid Feliz MD Unavailable Enid Feliz MD Unavailable Reason for Visit * Reason Onset Date Comments Refill Request 08/03/2017 metoprolol succi dylon (TOPROL-XL) 100 MG 24 hr tablet Encounter Details Date Type Department Care Team (Late st Contact Info) Description 08/03/2017 Refill [facility] [address] [place] [address] Eva Church, CORDELIA [address] [place] [address] Refill Request (metoprolol succinate (TOPROL-XL) 100 MG 24 hr tablet) Social History Tobacco Use Types Packs/Day Years Used Date Smoking Tobacco: Every Day Smokeless Tobacco: Never Alcohol Use Standard Drinks/Week Comments Yes 0 (1 standard drink = 0.6 oz pur e alcohol) rarely Comments No Sex and Gender Information Value Date Recorded Sex Assigned at Not on file Legal Sex Female 12:23 PM CDT Gender Identity Not on file Sexual Orientation Not on file documented as of this encounter Miscellaneous Notes * Telephone Encounter - Elvira Barry RN - 08/03/2017 1:44 PM CDT Routing refill request to provider for review/approval because: Multiple evon fills given and last refill was a 2 week supply. Pt has an appt next week. Do you want to give 1 week or 2? Elvira Barry RN, BSN * Telephone Encounter - Cyrus Lawrence - 08/03/2017 1:42 PM CDT Requested Prescriptions Pending Prescriptions Disp Refills ??? metoprolol succinate (TOPROL-XL) 100 MG 24 hr tablet [Pharmacy Med Name: METOPROLOL ER SUCCINATE 100MG TABS] 14 tablet 0 Last Written Prescription Date: 07/18/2017 Last Fill Quantity: 14 tablet, # refills: 0 Last office visit: 11/08/2016 with prescribing provider: 11/08/2016 Future Office Visit: Next 5 appointments (look out 90 days) Aug 09, 2017 1:00 PM CDT SHORT with Eva Church NP [facility] [address] [facility] [address] Sig: TAKE 1 TABLET BY MOUTH EVERY DAY Beta-Blockers Protocol Passed 08/03/2017 1:36 PM Passed - Blood pressure under 140/90 in past 12 months BP Readings from Last 3 Encounters: 11/08/16 134/86 10/31/16 (!) 167/96 03/11/16 154/90 Passed - Patient is age 6 or older Passed - Recent (12 mo) or future (30 days) visit within the authorizing provider's specialty Patient had office visit in the last 12 months or has a visit in the next 30 days with authorizing provider or within the authorizing provider's specialty. See Patient Info tab in inbasket, or Choose Columns in Meds & Orders section of the refill encounter. Lawrence Bridges XRT documented in this encounter Plan of Treatment Not on file documented as of this encounter Visit Diagnoses Diagnosis Benign essential hypertension Essential hypertension, benign documented in this encounter Care Teams Air Sealing Technician Relationship Specialty Start Date End Date Clinic - [facility] [address] [place] [address] PCP - General 12/05/17 12/05/17 [place] [address] [place] [address] PCP - General Family Practice 12/06/17 Eva Church NP [place] [address] [place] [address] PCP - Assigned PCP 12/03/15 03/31/18 Davian Carcamo MD [address] [facility] [place] [address] PCP - Assigned PCP 04/01/18 05/01/18 [facility] ([facility] ([place]) 12/03/17 01/10/18 Lyn Morrell CAR COUPLER Lead Leather Roller Primary Care - CC 12/05/1701/27 Eva Church PRODUCT SUPPORT TECHNICIAN [place] [address] [place] [address] Assigned PCP 12/03/15 03/31/18 Davian Carcamo MD [address] [place] [address] Assigned PCP 01/14/18 07/21/18 [place] [address] [place] [address] Assigned PCP 07/22/18 02/11/22 [place] [address] [place] [address] Assigned PCP 04/23/22 08/12/22 documented as of this encounter
--- OUTSIDE RECORDS SUMMARY | 2024-04-26 19:33 | XMS_ITS | Encounter Summary ---
Author Organization [place] Address [address] [place] [address] Care Team Providers Care Actuary Name Role Phone [facility] Unavailable [facility] Primary Ca re Provider Lyn Morrell Unavailable Enid Feliz MD Primary Care Provider [phone] Eva Church NP Unavailable [phone] Davian Carcamo MD Unavailable Eva Church NP Unavailable [phone] Davian Carcamo MD Unavailable Enid Feliz MD Unavailable Enid Feliz MD Unavailable Reason for Visit * Reason Onset Date Comments Refill Request 06/19/2017 metoprolol succi dylon (TOPROL-XL) 100 MG 24 hr tablet Encounter Details Date Type Department Care Team (Late st Contact Info) Description 06/19/2017 Refill [facility] [address] [place] [address] Eva Church, CORDELIA [address] [place] [address] Refill Request (metoprolol succinate (TOPROL-XL) [...] Telephone Encounter - Elvira Barry RN - 06/19/2017 12:05 PM CDT Routing refill request to provider for review/approval because: Milla given x1 and patient did not follow up, please advise Pt has appt on Monday this week Elvira Barry RN, BSN * Telephone Encounter - Lawrence Bridges - 06/19/2017 12:02 PM CDT Requested Prescriptions Pending Prescriptions Disp Refills ??? metoprolol succinate (TOPROL-XL) 100 MG 24 hr tablet [Pharmacy Med Name: METOPROLOL ER SUCCINATE 100MG TABS] 30 tablet 0 Last Written Prescription Date: 05/17/2017 Last Fill Quantity: 30 TABLET, # refills: 0 Last office visit: 11/08/2016 with prescribing provider: 11/08/2016 Future Office Visit: Next 5 appointments (look out 90 days) Jun 21, 2017 1:30 PM CDT SHORT with Eva Church NP [facility] [address] [facility] [address] Sig: TAKE 1 TABLET BY MOUTH EVERY DAY Beta-Blockers Protocol Passed 06/19/2017 11:57 AM Passed - Blood pressure under 140/90 in [...] benign documented in this encounter Care Teams Actuary Relationship Specialty Start Date End Date Clinic - [facility] [id number] [place] [address] PCP - General 12/05/17 12/05/17 [place] [address] [place] [address] PCP - General Family Practice 12/06/17 Eva Church NP [address] [place] [address] PCP - Assigned PCP 12/03/15 03/31/18 Davian Carcamo MD [address] [facility] [place] [address] PCP - Assigned PCP 04/01/18 05/01/18 [facility] ([facility] ([place]) 12/03/17 01/10/18 Lyn Morrell INSPECTOR OF DREDGING Lead Music Pastor Primary Care - CC 12/05/1701/27 Eva Church NP [place] [address] [place] [address] Assigned PCP 12/03/15 03/31/18 Davian Carcamo MD [address] [place] [address] Assigned PCP 01/14/18 07/21/18 [place] [address] [place] [address] Assigned PCP 07/22/18 02/11/22 [place] [address] [place] [address] Assigned PCP 04/23/22 08/12/22 documented as of this encounter
--- OUTSIDE RECORDS SUMMARY | 2024-04-26 19:33 | XMS_ITS | Encounter Summary ---
Author Organization [facility] Address [address] [place] [address] Care Team Providers Care Galvanizer Zinc Name Role Phone Enid Feliz MD Primary Care Provider [phone] Enid Feliz MD Unavailable [phone] Enid Feliz MD Unavailable [phone] Reason for Visit * Reason Onset Date Comments Outreach 12/07/2018 VIP MAMMO -ATT 1 Encounter Details Date Type Department Care Team (Late st Contact Info) Description 12/07/2018 Telephone [facility] Centralized Scheduling [address] [place] [address] [place] [address] [place] [address] Outreach (VIP MAMMO -ATT 1) Social History Tobacco Use Types Packs/Day Years Used Date Smoking Tobacco: Every Day Cigarettes Smokeless Tobacco: Never Alcohol Use Standard Drinks/Week Comments Yes 0 (1 standard drink = 0.6 oz pur e alcohol) occ PHQ-2 Answer Date Recorded PHQ-2 Score 2 03/07/2018 Comments No Sex and Gender Information Value Date Recorded Sex Assigned at Not on file Legal Sex Female 12:23 PM CDT Gender Identity Not on file Sexual Orientation Not on file documented as of this encounter Miscellaneous Notes * Telephone Encounter - Reason, Monica D - 12/07/2018 10:45 AM CDT 12/07/2018 Attempt 1 Contacted patient in regards to scheduling VIP mammogram, [place] for DEC 17. Message on [employer] Patient is also due for - Comments: Outreach Teacher Associate LR documented in this encounter Plan of Treatment Not on file documented as of this encounter Goals Goal Patient Goal Type Associated Problems Recent Progress Patient-Stated? Author 1. 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 10:52 AM HURL SHAKER) No Lyn Morrell LICSW Note: Goal Statement: [...] on filedocumented in this encounter Care Teams Galvanizer Zinc Relationship Specialty [place] [address] [place] [address] PCP - General Family Practice 12/06/17 [place] [address] [place] [address] Assigned PCP 07/22/18 02/11/22 [place] [address] [place] [address] Assigned PCP 04/23/22 08/12/22 documented as of this encounter
--- OUTSIDE RECORDS SUMMARY | 2024-04-26 19:33 | XMS_ITS | Encounter Summary ---
Author Organization [facility] Address [address] [place] [address] Care Team Providers Care Mailing Specialist Name Role Phone Enid Feliz MD Primary Care Provider [phone] Enid Feliz MD Unavailable [phone] Enid Feliz MD Unavailable [phone] Encounter Details Date Type Department Care Team (Late st Contact Info) Description 09/30/2021 [facility] [place] [facility] Medical Advice [facility] [id number] [place] [address] Daniela Velez, WEED SCIENCE RESEARCH TECHNICIAN Social History Tobacco Use Types Packs/Day Years [...] Lifestyle Not on track( 018 10:52 AM GENETIC ENGINEER) No Lyn Morrell LICSW Note: Goal Statement: [...] documented as of this encounter Care Teams Mailing Specialist Relationship Specialty [place] [address] [place] [address] PCP - General Family Practice 12/06/17 [place] [address] [facility] [place] [address] Assigned PCP 07/22/18 02/11/22 [place] [address] [facility] [place] [address] Assigned PCP 04/23/22 08/12/22 documented as of this encounter
--- OUTSIDE RECORDS SUMMARY | 2024-04-26 19:33 | XMS_ITS | Encounter Summary ---
Author Organization [facility] Address [address] [place] [address] Care Team Providers Care Well Logging Captain Name Role Phone Enid Feliz MD Primary Care Provider [phone] Enid Feliz MD Unavailable [phone] Enid Feliz MD Unavailable [phone] Encounter Details Date Type Department Care Team (Late st Contact Info) Description 12/07/2018 [facility] Medical Advice [facility] Centralized Scheduling [facility] [place] [address] Reason, Monica D Social History Tobacco Use Types Packs/Day Years [...] Lifestyle Not on track( 018 10:52 AM DAY HABILITATION SUPERVISOR) No Lyn Morrell LICSW Note: Goal Statement: [...] on filedocumented in this encounter Care Teams Well Logging Captain Relationship Specialty [place] [address] [place] [address] PCP - General Family Practice 12/06/17 [place] [address] [place] [address] Assigned PCP 07/22/18 02/11/22 [place] [address] [place] [address] Assigned PCP 04/23/22 08/12/22 documented as of this encounter
--- OUTSIDE RECORDS SUMMARY | 2024-04-26 19:33 | XMS_ITS | Encounter Summary ---
Author Organization [facility] Address [address] [place] [address] Care Team Providers Care Food Dehydrator Operator Name Role Phone Enid Feliz MD Primary Care Provider [phone] Enid Feliz MD Unavailable [phone] Enid Feliz MD Unavailable [phone] Reason for Visit * Reason Onset Date Comments Refill Request 06/02/2021 cloNIDine (CATAP RES) 0.1 MG tablet Encounter Details Date Type Department Care Team (Late st Contact Info) Description 06/02/2021 Refill [facility] [address] [place] [address] [place] [address] [place] [address] Refill Request (cloNIDine (CATAPRES) 0.1 MG tablet) Social History Tobacco Use Types Packs/Day [...] encounter Miscellaneous Notes * Telephone Encounter - Suyapa Helton RN - 06/03/2021 7:19 AM CDT Routing refill request to provider for review/approval because: Milla given multiple times and patient did not follow up, please advise- do you want to give any further RF's JOSE DE JESUS 07/2019 Team please call to schedule please try to call and schedule again Suyapa Helton RN documented in this encounter Plan of Treatment Not on file documented as of this encounter Goals Goal Patient Goal Type Associated Problems Recent Progress Patient-Stated? Author 1. 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) No Lyn Morrell LICSW Note: Goal Statement: [...] Essential hypertension, benign documented in this encounter Additional Health Concerns Assessment Noted Time PHQ-9 Depression Total Score: 20 020 4:56 PM CDT documented as of this encounter Care Teams Food Dehydrator Operator Relationship Specialty [place] [address] [place] [address] PCP - General Family Practice 12/06/17 [place] [address] [place] [address] Assigned PCP 07/22/18 02/11/22 [place] [address] [place] [address] Assigned PCP 04/23/22 08/12/22 documented as of this encounter
--- OUTSIDE RECORDS SUMMARY | 2024-04-26 19:33 | XMS_ITS | Encounter Summary ---
Author Organization [facility] Address [address] [place] [address] Care Team Providers Care Associate Professor Of Archaeology Name Role Phone [facility] Unavailable [facility] Primary Ca re Provider Lyn Morrell Unavailable [phone] Enid Feliz MD Primary Care Provider [phone] Eva Church NP Unavailable [phone] Davian Carcamo MD Unavailable Eva Church NP Unavailable [phone] Davian Carcamo MD Unavailable Enid Feliz MD Unavailable Enid Feliz MD Unavailable [phone] Reason for Visit * Reason Comments Medication Refill metoprolol Encounter Details Date Type Department Care Team (Late st Contact Info) Description [facility] [address] [place] [address] Eva Church, CORDELIA [address] [place] [address] Medication Refill (metoprolol) Social History Tobacco Use Types Packs/Day Years [...] Telephone Encounter - Elvira Barry RN - 05/17/2017 11:01 AM CDT Routing refill request to provider for review/approval because: Milla given x1 and patient did not follow up, please advise Pt was scheduled for px on 04/28/17 and cancelled and no follow up Spoke with patient and her daughter has been out of town and pt does not have a care. She is not sure when she will be able to make an appt Elvira Barry RN, BSN Last Written Prescription Date: 04/19/17 Last Fill Quantity: 30, # refills: 0 Last office visit: 11/08/2016 with prescribing provider: Ranjit Future Office Visit: Requested Prescriptions Pending Prescriptions Disp Refills ??? metoprolol succinate (TOPROL-XL) 100 MG 24 hr tablet [Pharmacy Med Name: METOPROLOL ER SUCCINATE 100MG TABS] 30 tablet 0 Sig: TAKE 1 TABLET BY MOUTH ONCE DAILY Beta-Blockers Protocol Passed 05/17/2017 11:01 AM Passed - Blood pressure under 140/90 [...] & Orders section of the refill encounter. documented in this encounter Plan of Treatment Not on file documented as of this encounter Visit Diagnoses Diagnosis Benign essential hypertension Essential hypertension, benign documented in this encounter Care Teams Associate Professor Of Archaeology Relationship Specialty Start Date End Date Clinic - [facility] [address] [place] [address] PCP - General 12/05/17 12/05/17 [place] [address] [place] [address] PCP - General Family Practice 12/06/17 Eva Church, DRIER AND PULVERIZER TENDER [address] [place] [address] PCP - Assigned PCP 12/03/15 03/31/18 Davian Carcamo MD [address] [place] [address] PCP - Assigned PCP 04/01/18 05/01/18 [facility] 12/03/17 01/10/18 Lyn Morrell PRESS WASHER Lead Scheduler Conveyor Primary Care - [facility] 12/05/1701/27 Eva Church, DRIER AND PULVERIZER TENDER [address] [place] [address] Assigned PCP 12/03/15 03/31/18 Davian Carcamo MD [address] [place] [address] Assigned PCP 01/14/18 07/21/18 [place] [address] [place] [address] Assigned PCP 07/22/18 02/11/22 [place] [address] [place] [address] Assigned PCP 04/23/22 08/12/22 documented as of this encounter
--- OUTSIDE RECORDS SUMMARY | 2024-04-26 19:33 | XMS_ITS | Encounter Summary ---
Author Organization [facility] Address [address] [place] [address] Care Team Providers Care Field Care Advocate Name Role Phone [facility] Unavailable [facility] Primary Ca re Provider Lyn Morrell Unavailable [phone] Enid Feliz MD Primary Care Provider [phone] Eva Church NP Unavailable [phone] Davian Carcamo MD Unavailable Eva Church NP Unavailable [phone] Davian Carcamo MD Unavailable Enid Feliz MD Unavailable Enid Feliz MD Unavailable Reason for Visit * Reason Onset Date Comments Refill Request 07/17/2017 metoprolol succi dylon (TOPROL-XL) 100 MG 24 hr tablet Encounter Details Date Type Department Care Team (Late st Contact Info) Description 07/17/2017 Refill [facility] [address] [place] [address] Eva Church, CORDELIA [address] [place] [address] Refill Request (metoprolol succinate (TOPROL-XL) [...] encounter Miscellaneous Notes * Telephone Encounter - Harriet Infante RN - 07/18/2017 12:31 PM CDT Called the Pt to schedule an OV. Per the Pt she has had to cancel multiple appointments due to transportation issues. She is trying to coordinate a ride with her daughter. Multiple evon refills already issued. The Pt reports she will be out of the medication either or Monday. She will call back in to schedule OV for next week after she speaks with her daughter. Routing to PCP to review. Tamica pended a 2 weeks supply of the medication. Harriet Infante RN -- [facility] * Telephone Encounter - Lawrence Bridges - 07/17/2017 10:24 AM CDT Requested Prescriptions Pending Prescriptions Disp Refills ??? metoprolol succinate (TOPROL-XL) 100 MG 24 hr tablet [Pharmacy Med Name: METOPROLOL ER SUCCINATE 100MG TABS] 30 tablet 0 Last Written Prescription Date: 06/20/2017 Last Fill Quantity: 30 tablet, # refills: 0 Last office visit: 11/08/2016 with prescribing provider: 11/08/2016 Future Office Visit: Sig: TAKE 1 TABLET BY MOUTH EVERY DAY Beta-Blockers Protocol Passed 07/17/2017 10:14 AM Passed - Blood pressure under 140/90 [...] benign documented in this encounter Care Teams Field Care Advocate Relationship Specialty Start Date End Date Clinic - [facility] [id number] [place] [address] PCP - General 12/05/17 12/05/17 [place] [address] [place] [address] PCP - General Family Practice 12/06/17 Eva Church AUTO APPRENTICE MECHANIC [place] [address] [place] [address] PCP - Assigned PCP 12/03/15 03/31/18 Davian Cacramo MD [address] [facility] [place] [address] PCP - Assigned PCP 04/01/18 05/01/18 [facility] ([place]) 12/03/17 01/10/18 Lyn Morrell SALON ASSISTANT Lead Procedure Rn Primary Care - CC 12/05/1701/27 Eva Church AUTO APPRENTICE MECHANIC [place] [address] [place] [address] Assigned PCP 12/03/15 03/31/18 Davian Carcamo MD [address] [place] [address] Assigned PCP 01/14/18 07/21/18 [place] [address] [place] [address] Assigned PCP 07/22/18 02/11/22 [place] [address] [place] [address] Assigned PCP 04/23/22 08/12/22 documented as of this encounter
--- OUTSIDE RECORDS SUMMARY | 2024-04-26 19:33 | XMS_ITS | Encounter Summary ---
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
--- OUTSIDE RECORDS SUMMARY | 2024-04-26 19:33 | XMS_ITS | Clinical Summary ---
Author Organization [facility] Address [address] [place] [address] Care Team Providers Care Mining And Quarrying Machinery Repairer Name Role Phone Enid Feliz MD Primary Care Provider [phone] Allergies Active Allergy Reactions Criticality Noted Date Comments Aspirin High 12/16/2015 Lisinopril Swelling 12/16/2015 Valdecoxib Rash Low 12/29/2004 Medications HYDROcodone-acetam inophen (NORCO) 5-325 MG per tablet TK 1 T PO Q 6 H PRN P. 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 LEAD D exacerbation (H) Equipment being ordered: Walker Wheels (E0155) and Walker (E0135) Treatment Diagnosis: decreased stability with gait 1 each 12/04/19 18 Active Additional Information Patient not taking.Reported on 08/08/2019 order for DMEIndications:Acu te bronchitis, unspecified organism Equipment being ordered: Nebulizer with mask and tubing 1 Units 07/07/19 19 Active vitamin D3 (CHOLECALCIFEROL) 2000 units tabletIndications: Vitamin D deficiency Take 1 tablet by mouth daily 90 tablet 3 07/07/19 19 Active multivitamin w/minerals (THERA-VIT-M) tabletIndications: Alcohol use Take 1 tablet by mouth daily 90 each 3 07/07/19 19 Active albuterol (PROAIR HFA/PROVENTIL HFA/VENTOLIN HFA) 108 (90 Base) MCG/ACT inhalerIndications :Acute bronchospasm Inhale 2 puffs into the lungs every 4 hours as needed for shortness of breath / dyspnea or wheezing 18 g 3 07/21/19 19 Active mometasone (ELOCON) 0.1 % external creamIndications:P soriasis Apply 1 g topically daily as needed 50 g 5 01/16/20 19 Active chlorthalidone (HYGROTON) 25 MG tabletIndications: Benign essential hypertension Take 1 tablet (25 mg) by mouth daily 90 tablet 3 08/08/19 20 Active gabapentin (NEURONTIN) 300 MG capsuleIndications :Peripheral polyneuropathy,Res tless legs syndrome (RLS) 600 mg in the AM, 600 mg in the afternoon, and 900 mg at bedtime 210 capsule 3 08/08/19 20 Active metoprolol succinate ER (TOPROL-XL) 100 MG 24 hr tabletIndications: Benign essential hypertension Take 1 tablet (100 mg) by mouth daily 90 tablet 3 08/08/19 20 Active venlafaxine (EFFEXOR-XR) 37.5 MG 24 hr capsuleIndications :Dysthymia Take 1 capsule (37.5 mg) by mouth daily 14 capsule 11/25/19 20 Active atorvastatin (LIPITOR) 20 MG tabletIndications: Mixed hyperlipidemia TAKE 1 TABLET(20 MG) BY MOUTH DAILY 30 tablet 01/29/20 21 Active cloNIDine (CATAPRES) 0.1 MG tabletIndications: Benign essential hypertension Take 1 tablet (0.1 mg) by mouth 2 times daily NEEDS VISIT 30 tablet 04/22/19 22 Active Active Problems Problem Noted Date Diagnosed Date Dysthymia 08/08/2019 Mixed hyperlipidemia 08/08/2019 Alcohol use disorder, mild, abuse 12/05/2017 Syncope and collapse 12/02/2017 Morbid obesity 08/18/2017 Benign essential hypertension 03/11/2016 Psoriasis 03/11/2016 Tobacco use disorder 03/11/2016 Hip pain, right 03/11/2016 Hip pain, left 03/11/2016 Resolved Problems Problem Noted Date Diagnosed Date Resolved Date Non morbid obesity, unspecified obesity type 7 12/05/2017 Immunizations Name Administration Dates Next Due TDAP Vaccine (Boostrix) 03/11/2016 Family History Relation Status Comments Father Mother Social History Tobacco Use Types Packs/Day Years Used Date Smoking Tobacco: Every Day Cigarettes Smokeless Tobacco: Never Alcohol Use Standard Drinks/Week Comments Yes 0 (1 standard drink = 0.6 oz pur e alcohol) occ PHQ-2 Answer Date Recorded PHQ-2 Score 0 08/08/2019 Adolescent Education Answer Date Record ed Getting School Help Needed Not on file 11/18 Comments No Sex and Gender Information Value Date Recorded Sex Assigned at Not on file Legal Sex Female 12:23 PM CDT Gender Identity Not on file Sexual Orientation Not on file Last Filed Vital Signs Vital Sign Reading Time Taken Comments Blood Pressure 138/76 07/20/2018 3:03 PM CDT Pulse 64 07/20/2018 2:25 PM CDT Temperature 37.1 C (98.7 F) 07/20/2018 2:25 PM CDT Respiratory Rate 14 07/20/2018 2:25 PM CDT Oxygen Saturation 99% 07/06/2018 2:24 PM CDT Inhaled Oxygen Concentration - - Weight 126.6 kg (279 lb) 07/20/2018 2:25 PM CDT Height 167.6 cm (5' 6) 07/20/2018 2:25 PM CDT Body Mass Index 45.03 07/20/2018 2:25 PM CDT Plan of Treatment Not on file Goals Goal Patient Goal Type Associated Problems Recent Progress Patient-Stated? Author 1. 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 10:52 AM BLOOD BANK CUSTODIAN) No Lyn Morrell, DANITA Note: Goal Statement: I will quit smoking [...] a cigarette. Date to Achieve By: 05/2018 Insurance MEDICARE Advance Directives For more information, please contact: [phone] * Full Code (Latest Code Status on File) Date Activated Date Inactivated Comments 12/02/2017 12:47 AM 12/03/2017 8:09 PM Question Answer Comments Code status determined by: Discussion with wan foster/legal decision maker Care Teams Mining And Quarrying Machinery Repairer Relationship Specialty [place] [address] [place] [address] PCP - General Family Practice 12/06/17
--- OUTSIDE RECORDS SUMMARY | 2024-04-26 19:33 | XMS_ITS | Encounter Summary ---
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
[2024-04-26] MEDS: diazePAM 5 MG TABLET PO (19:49)
[2024-04-26] MEDS: OxyCODONE/APAP 5-325 TABLET 2 TAB PO (19:49)
[2024-04-26 19:58] LABS: Lactate* 7.1 mmol/L (0.5-1.9)
[2024-04-26 20:02] LABS: Basophils Absolute Auto 0.07 K/uL (0.00-0.30); Eosinophils Absolute Auto 0.02 K/uL (0.00-0.50); Eosinophils Percent Auto 0.3 % (0.0-7.0); Hematocrit 38.7 % (33.0-51.0); Hemoglobin* 12.5 gm/dL (12.0-16.0); Immature Granulocytes Abs Auto 0.01 K/uL (0.00-0.30); Immature Granulocytes Pct Auto 0.1 %; Lymphocytes Absolute Auto 2.38 K/uL (0.90-2.90); Lymphocytes Percent Auto 32.6 % (20-44); Mean Corpuscular HGB Conc 32 gm/dL (32-36); Mean Corpuscular Hemoglobin 28 pg (26-34); Mean Corpuscular Volume 86 fL (80-100); Monocytes Percent Auto 4.8 % (0.0-11.0); Neutrophils Absolute Auto 4.46 K/uL (1.7-7.0); Neutrophils Percent Auto 61.2 % (42.0-72.0); Platelet Count* 286 K/uL (140-440); RDW Coefficient of Variation % 16.1 % (11.5-15.5); Red Blood Count 4.49 m/uL (4.00-5.20); White Blood Count* 7.29 K/uL (4.50-11.00)
[2024-04-26 20:03] LABS: Slide Review Reflex No
[2024-04-26 20:12] LABS: Chloride* 96 mmol/L (96-114)
[2024-04-26 20:13] LABS: Albumin* 4.5 g/dL (3.3-5.0); Potassium* 4.6 mmol/L (3.6-5.1); Sodium* 138 mmol/L (135-149)
[2024-04-26 20:16] LABS: Alkaline Phosphatase* 93 U/L (40-150); Anion Gap 22 mEq/L (7-15); Aspartate Amino Transferase* 21 U/L (12-35); Bilirubin Direct* 0.3 mg/dL (0.0-0.5); Bilirubin Total* 0.4 mg/dL (0.1-1.5); Blood Urea Nitrogen* 39 mg/dL (7-30); Calcium* 9.3 mg/dL (8.4-10.6); Carbon Dioxide* 20 mmol/L (20-32); Creatinine* 1.3 mg/dL (0.5-1.5); Est. Creatinine Clearance* 40.93; Estimated Glomerular Filt Rate 46 ml/min; Glucose* 122 mg/dL (60-115); Total Protein* 7.7 g/dL (6.0-8.3)
[2024-04-26 20:17] LABS: Alanine Aminotransferase* 18 U/L (4-35); Creatine Kinase* 70 U/L (41-117)
[2024-04-26 20:35] LABS: Ethanol* 0.27 % (0.01-0.03)
[2024-04-26] MEDS: LACTATED RINGERS 1000 ML 1,000 ML IV (21:19)
[2024-04-26 22:56] LABS: Lactate* 6.2 mmol/L (0.5-1.9)
[2024-04-26 23:12] LABS: Appearance Urine Cloudy (Clear); Bilirubin Urine Negative (Negative); Blood Urine 1+ (Negative); Color Urine Yellow (Yellow); Glucose Urine Negative (Negative); Ketones Urine Negative (Negative); Leukocyte Esterase Urine Negative (Negative); Nitrite Urine Positive (Negative); Protein Urine 1+ (Negative); Specific Gravity Urine 1.025 (1.000-1.030); Urobilinogen Urine 0.2 (0.2-1.0)
[2024-04-26] MEDS: 0.9 % SODIUM CHLORIDE 1000 ml 1,000 ML IV ×2 (23:24→23:33)
[2024-04-26 23:29] LABS: Bacteria Urine Few; WBC Urine 0-2 (0-5)
[2024-04-26] MEDS: PIPERACILLIN/TAZOBACTAM 4.5 GM in 0.9 % SODIUM CHLORIDE Mini-bag 100 ML IVPB (23:30)
[2024-04-27] VITALS (12 sets, daily range): BP systolic 140–158; BP diastolic 79–82; PULSE 96–104; RESP 18; TEMP 37.3; O2SAT 91–93
[2024-04-27] MEDS: VANCOMYCIN 2 GM/400 ML 2 GM/400 ML PIGGYBACK IVPB (00:10)
[2024-04-27] MEDS: fentaNYL 100 MCG/2 ML inj 50 MCG IVP (01:32)
[2024-04-27 01:56] LABS: Lactate* 5.1 mmol/L (0.5-1.9)
[2024-04-27 02:09] LABS: Chloride* 100 mmol/L (96-114); Potassium* 3.9 mmol/L (3.6-5.1); Sodium* 136 mmol/L (135-149)
[2024-04-27 02:11] LABS: Blood Urea Nitrogen* 35 mg/dL (7-30); Creatinine* 1.3 mg/dL (0.5-1.5); Est. Creatinine Clearance* 40.93; Estimated Glomerular Filt Rate 46 ml/min
[2024-04-27 02:12] LABS: Anion Gap 19 mEq/L (7-15); Calcium* 8.3 mg/dL (8.4-10.6); Carbon Dioxide* 17 mmol/L (20-32); Glucose* 128 mg/dL (60-115)
== END 2024-04-27 03:24 | disposition other institution (70) ==
PROVIDERS: Emergency Provider Emergency Medicine; PCP Internal Medicine
DX: M54.50 Low back pain, unspecified (principal); F10.129 Alcohol abuse with intoxication, unspecified; J18.9 Pneumonia, unspecified organism; E87.20 Acidosis, unspecified
CPT/HCPCS: 36415; 71046; 72131; 74177; 80048; 80076; 81001; 82077; 82550; 83605; 85025; 87040; 87086; 87186; 87800; 96365; 96366; 99285; A9270; J2543; J3010; J3372; J7030; J7120; Q9967

== ENCOUNTER 2024-04-27 03:09 | Outpatient (CLI) | payer OTHER, SELFPAY | END 2024-04-27 03:10 | disposition home or self-care (01) | LOC: AMB 05-03 09:30 | PROVIDERS: PCP Internal Medicine; Visit Provider Family Medicine | DX: M54.9 Dorsalgia, unspecified (principal); R62.7 Adult failure to thrive | CPT/HCPCS: A0425; A0429 ==